=== PATIENT | female | born 1990 | race Caucasian/White ===

== ENCOUNTER 2018-09-08 19:22 | Observation (INO) | payer SELFPAY ==
[~2018-09-08] VITALS: Ht 152.4 cm; Wt 52.2 kg
[~2018-09-08 19:22] MED LIST: IBP600T1 PO; OCP
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
--- NOTE | 2018-09-08 19:30 | NUR ---
PT REPORTS GENRALIZED PAIN ALL OVER, DR. NUNEZ OFFERS PAIN MEDICATION. PT REFUSES AT THIS TIME STATING, "I GET SICK WITH PAIN MEDICATION."
[2018-09-08] MEDS ORDERED: NS IV 1000 ML 1,000 ML IV ONE (19:38)
[2018-09-08 19:48] LABS: BASOPHILS % (AUTO) 0 % (0-10); EOSINOPHILS % (AUTO) 0 % (0-10); HEMATOCRIT 43 % (35-52); LYMPHOCYTES # (AUTO) 1.2 X 10^3 (1.0-4.0); LYMPHOCYTES % (AUTO) 6 % (12-44); MEAN CORPUSCULAR HEMOGLOBIN 30 PG (25-34); MEAN CORPUSCULAR HGB CONC 35 G/DL (32-36); MEAN CORPUSCULAR VOLUME 87 FL (80-99); MEAN PLATELET VOLUME 9.4 FL (7.4-10.4); MONOCYTES # (AUTO) 1.5 X 10^3 (0.0-1.0); MONOCYTES % (AUTO) 8 % (0-12); NEUTROPHILS # (AUTO) 16.4 X 10^3 (1.8-7.8); NEUTROPHILS % (AUTO) 86 % (42-75); PLATELET COUNT 311 10^3/uL (130-400); RED CELL DISTRIBUTION WIDTH 13.4 % (10.0-14.5); WHITE BLOOD COUNT 19.1 10^3/uL (4.3-11.0)
[2018-09-08 20:08] LABS: ALANINE AMINOTRANSFERASE 30 U/L (0-55); ALBUMIN 4.4 GM/DL (3.2-4.5); ALKALINE PHOSPHATASE 63 U/L (40-136); BILIRUBIN,TOTAL 0.6 MG/DL (0.1-1.0); BUN/CREATININE RATIO 8; CALCIUM 9.1 MG/DL (8.5-10.1); CARBON DIOXIDE 15 MMOL/L (21-32); CHLORIDE 112 MMOL/L (98-107); CREATINE KINASE 429 U/L (29-168); CREATININE SERUM 0.83 MG/DL (0.60-1.30); GFR ESTIMATED > 60; GLUCOSE 124 MG/DL (70-105); POTASSIUM 3.9 MMOL/L (3.6-5.0); SODIUM 144 MMOL/L (135-145); TOTAL PROTEIN 7.4 GM/DL (6.4-8.2)
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
[2018-09-08] MEDS ORDERED: ONDANSETRON 4 MG/2 ML (SDV) Z0FRAN ONE (20:13)
[2018-09-08] MEDS ORDERED: IOHEXOL 350 MG/ML 100 ML (OMNIPAQUE 350) VIAL IV ONE (20:15)
[2018-09-08] MEDS ORDERED: HOLD METFORMIN - RECEIVED CONTRAST 20 ML VIAL IV SCH (20:15)
--- NOTE | 2018-09-08 20:20 | NUR ---
PT REPORTS BRITO AT THIS TIME WHILE ON RADIOLOGY TABLE AND REQUEST PAIN MEDICATION. DR. PADRON CONTACTED FOR ORDER.
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
[2018-09-08] MEDS ORDERED: fentaNYL INJECTION 100 MCG/2 ML AMP IVP ONE ×2 (20:30→21:30)
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
[2018-09-08 20:37] LABS: BAND NEUTROPHILS 3 %; BASOPHILS % (MANUAL) 0 %; EOSINOPHILS % (MANUAL) 0 %; LYMPHOCYTES % (MANUAL) 4 %; MONOCYTES % (MANUAL) 3 %; NEUTROPHILS % (MANUAL) 90 %; RBC MORPH NORMAL
--- NOTE | 2018-09-08 20:38 | NUR ---
PT REPORTS PAIN HAS IMPROVED AT THIS TIME.
--- NOTE | 2018-09-08 20:53 | Diagnostic Imaging Report ---
INDICATION: Bilateral forearm pain. COMPARISON: None available. TECHNIQUE: AP and lateral views of each forearm were obtained. FINDINGS AND IMPRESSION: 1. No acute fracture within the right or left forearm. 2. No radiopaque foreign bodies. Dictated by: Dictated on workstation # [id number]
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
--- NOTE | 2018-09-08 21:10 | NUR ---
pt assisted to bedside commode at this time.
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
--- NOTE | 2018-09-08 21:22 | NUR ---
poison control called at this time. suggests applying goup or mineral oil to skin where adhesive is still.
[2018-09-08 21:25] LABS: BILIRUBIN,URINE NEGATIVE (NEGATIVE); CLARITY,URINE SLIGHTLY CLOUDY; COLOR,URINE YELLOW; GLUCOSE, URINE (UA) NEGATIVE (NEGATIVE); KETONES,URINE 1+ (NEGATIVE); LEUKOCYTE ESTERASE ,URINE 1+ (NEGATIVE); NITRITE,URINE NEGATIVE (NEGATIVE); PH,URINE 6 (5-9); PROTEIN,URINE 4+ (NEGATIVE); UROBILINOGEN,URINE 4 MG/DL (NORMAL)
[2018-09-08 21:36] LABS: BACTERIA,URINE FEW /HPF; SQUAMOUS EPITHELIAL CELL,UR 25-50 /HPF
[2018-09-08 21:38] LABS: AMPHETAMINE SCREEN, URINE NEGATIVE (NEGATIVE); BARBITURATE SCREEN URINE NEGATIVE (NEGATIVE); BENZODIAZEPINES SCREEN URINE POSITIVE (NEGATIVE); CANNABINOID SCREEN, URINE POSITIVE (NEGATIVE); COCAINE SCREEN URINE NEGATIVE (NEGATIVE); METHADONE STAT NEGATIVE (NEGATIVE); METHAMPHETAMINE SCREEN URINE S NEGATIVE (NEGATIVE); OPIATE SCREEN URINE NEGATIVE (NEGATIVE); OXYCODONE STAT NEGATIVE (NEGATIVE); PROPOXYPHENE STAT NEGATIVE (NEGATIVE); TRICYCLIC ANTIDEPRESSANTS SCRE NEGATIVE (NEGATIVE)
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
[2018-09-08] MEDS ORDERED: PROMETHAZINE INJ 25 MG/ML (PHENERGAN) AMP IVP ONE (21:45)
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
[2018-09-08] MEDS ORDERED: MINERAL OIL CONCENTRATE 99.9% 15 ML UDC ONE (21:56)
--- NOTE | 2018-09-08 22:16 | NUR ---
MINERAL OIL APPLIED TO PT SKIN WHERE SPRAY ADHESIVE IS PRESENT, PER DR. NO ORDERS. STATES, "LEAVE ON TO SOAK INTO ADHESIVE AND HAVE ICU ATTEMPT TO REMOVE ONCE PT IS UPSTAIRS."
--- NOTE | 2018-09-08 22:24 | NUR ---
PT TRANSFERED TO ICU AT [facility] TIME [facility] PT C-COLLAR REMAINS INTACT PER DR. NO ORDERS.
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
[2018-09-08 22:39] VITALS: BP 118/68
[2018-09-08] MEDS ORDERED: NS IV 1000 ML 1,000 ML ONE (22:43)
--- NOTE | 2018-09-08 22:50 | NUR ---
[place] [employer] OFFICER PRAKASH HERE FOR PT CLOTHING. OFFICER DIRECTED TO ICU FOR COLLECTION OF PT CLOTHING AT THIS TIME.
[2018-09-08 23:00] VITALS: BP 117/66
[2018-09-08] MEDS ORDERED: ONDANSETRON 4 MG/2 ML (SDV) Z0FRAN IV PRN (23:45)
[2018-09-08] MEDS: NS IV 1000 ML 1,000 ML IV SCH (23:45)
[2018-09-08] MEDS ORDERED: HYDROcodone/APAP 5 MG/325 MG (LORTAB) TAB PO PRN (23:45)
[2018-09-09] VITALS: BP 103/52
--- NOTE | 2018-09-09 00:15 | NUR ---
[place] [employer] OFFICER HERE TO TAKE PTS CLOTHING
[2018-09-09] MEDS: morphine INJ 4 MG/ML 1 ML (VIAL/SYRINGE) IV PRN ×4 (00:22→11:58)
[2018-09-09 01:00] VITALS: BP 95/51
[2018-09-09 01:41] VITALS: BP 118/68
[2018-09-09 03:49] LABS: BASOPHILS % (AUTO) 0 % (0-10); EOSINOPHILS % (AUTO) 0 % (0-10); HEMATOCRIT 34 % (35-52); HEMOGLOBIN 11.5 G/DL (11.5-16.0); LYMPHOCYTES # (AUTO) 3.1 X 10^3 (1.0-4.0); LYMPHOCYTES % (AUTO) 33 % (12-44); MEAN CORPUSCULAR HEMOGLOBIN 30 PG (25-34); MEAN CORPUSCULAR HGB CONC 34 G/DL (32-36); MEAN CORPUSCULAR VOLUME 88 FL (80-99); MEAN PLATELET VOLUME 9.3 FL (7.4-10.4); MONOCYTES % (AUTO) 11 % (0-12); NEUTROPHILS # (AUTO) 5.3 X 10^3 (1.8-7.8); NEUTROPHILS % (AUTO) 56 % (42-75); PLATELET COUNT 214 10^3/uL (130-400); RED CELL DISTRIBUTION WIDTH 13.2 % (10.0-14.5); WHITE BLOOD COUNT 9.4 10^3/uL (4.3-11.0)
[2018-09-09 04:00] VITALS: BP 106/65
[2018-09-09 04:13] LABS: ALANINE AMINOTRANSFERASE 23 U/L (0-55); ALBUMIN 3.5 GM/DL (3.2-4.5); ALKALINE PHOSPHATASE 50 U/L (40-136); BILIRUBIN,TOTAL 1.5 MG/DL (0.1-1.0); BUN/CREATININE RATIO 10; CALCIUM 7.9 MG/DL (8.5-10.1); CARBON DIOXIDE 19 MMOL/L (21-32); CHLORIDE 109 MMOL/L (98-107); CREATINE KINASE 413 U/L (29-168); CREATININE SERUM 0.61 MG/DL (0.60-1.30); GFR ESTIMATED > 60; GLUCOSE 91 MG/DL (70-105); POTASSIUM 4.2 MMOL/L (3.6-5.0); SODIUM 139 MMOL/L (135-145); TOTAL PROTEIN 5.5 GM/DL (6.4-8.2)
--- NOTE | 2018-09-09 05:08 | NUR ---
DR NOGUERA HERE AND REMOVED NECK BRACE
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
[2018-09-09] MEDS: NS IV 1000 ML 1,000 ML IV SCH (07:37)
[2018-09-09 08:00] VITALS: BP 97/62
--- NOTE | 2018-09-09 08:57 | NUR ---
Pt resting with eyes closed, visitor present in the room resting with eyes next to her bed. Addendum: 09/09/18 at 0905 by GEORGE DRAPER PAST Pt resting with eyes closed, visitor present in the room resting with eyes closed, next to her bed in chair.
[2018-09-09] MEDS ORDERED: ACHD5005 PO (11:19)
--- NOTE | 2018-09-09 11:25 | Discharge Inst-Simple/Standard ---
Discharge Inst-Standard Discharge Medications New, Converted or Re-Newed RX: RX on Chart Patient Instructions/Follow Up Plan of Care/Instructions/FU: Dr. rAora 5-[address] Walton 2 weeks. Keep triple antibiotic ointment on any open wounds. Activity as Tolerated: Yes Discharge Diet: Regular Diet Other Inst to Patient Skin/Wound Care: Keep wounds clean and dry. Keep triple antibiotic over any open wounds. Symptoms to Report: Appetite Changes, Extremity Discoloration, Numbness/Tingling, Swelling Increased , Bleeding Excessive, Eyesight Changes, Pain Increased, Urine Color Change, Constipation(Persistent), Fever over 101 degree F, Pain/Pressure in chest, Urinating Difficulty, Cough Up/Vomit Blood, Heart Beat Irreg/Pounding, Pain/ Pressure in jaw, Vaginal Bleeding Increase, Cramps in feet or legs, Lightheadedness, Pain/Pressure in shoulder, Diarrhea(Persistent), Memory Changes Suddenly, Questions/Concerns, Weight gain consecutive days, Dizziness/ Fainting, Nausea/Vomiting, Shortness of Breath, Weight gain over 2 pounds If questions or concerns contact your physician Or seek help at emergency department. ANGELA WALTON DO Sep 09, 2018 11:25
--- NOTE | 2018-09-09 11:30 | NUR ---
THIS RN CONTACTED DR HEBERT OFFICER PER DR SO REQUEST FOR PT TO HAVE IMMEDIATE OFFICE VISIT OR IN HOSPITAL CONSULT. DR HEBERT OFFICE STATED THAT PT COULD BE SEEN TODAY LUANN. THIS RN NOTIFIED DR SO AND DISCHARGE PROCESS STARTED.
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
[2018-09-09] MEDS ORDERED: MINERAL OIL CONCENTRATE 99.9% 15 ML UDC ONE (11:48)
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
[2018-09-09] MEDS ORDERED: FLU QUADRIvalent (5+ YOA) 2018-2019 (AFLURIA) 0.5 ML IM ONE (12:45)
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
== END 2018-09-09 11:20 | disposition home or self-care (01) ==
LOC: EDUNIT# 19:22 → ER 19:23 → UNDOADMOB 21:34 → ICU 21:34 → UNDODISOB 09-09 12:15
PROVIDERS: ADMIT Surgery; ATTEND Surgery
DX: S06.0X9A Concussion with loss of consciousness of unspecified duration, initial encounter (principal); S02.401A Maxillary fracture, unspecified side, initial encounter for closed fracture; S61.511A Laceration without foreign body of right wrist, initial encounter; S71.111A Laceration without foreign body, right thigh, initial encounter; H53.8 Other visual disturbances; F10.129 Alcohol abuse with intoxication, unspecified; F12.90 Cannabis use, unspecified, uncomplicated; F17.210 Nicotine dependence, cigarettes, uncomplicated; Z77.098 Contact with and (suspected) exposure to other hazardous, chiefly nonmedicinal, chemicals; Y04.8XXA Assault by other bodily force, initial encounter; Y08.89XA Assault by other specified means, initial encounter
CPT/HCPCS: 36415; 70450; 70486; 71045; 71260; 72125; 74177; 80053; 80306; 80320; 81000; 82550; 84703; 85007; 85025; 85027; 86850; 86900; 86901; 87088; 93041; 96374; 96375; 96376

== ENCOUNTER 2018-12-22 11:01 | Emergency (ER) | payer SELFPAY ==
[~2018-12-22 11:01] MED LIST changes: +ACHD5005 PO
--- OUTSIDE RECORDS SUMMARY | 2018-12-22 11:06 | XMS REPORT | Continuity of Care Document ---
Author Author [facility] Organization [facility] Address [address] [place] [address] Phone Unavailable Care Team Providers Care Housing Officer Name Role Phone Provider, No Primary Care PCP Unavailable Insurance Providers Payer Name Policy Number Subscriber Name Relationship [facility] [id number] Skinny Dickerson Self / Same As Patient Advance Directives Directive Response Recorded Date/Time Do You Have A Living Will? No 11/18/16 12:41am Do You Have a DPOA? No 11/18/16 12:41am Problems Active Problems Medical Problem Onset Date Status Peptic ulcer disease Unknown Acute Hematemesis Unknown Acute Ruptured ovarian cyst Unknown Acute Medications Current Home Medications Medication Dose Units Route Directions Days/Qty Instructions Start Date Prochlorperazine Maleate 10 Mg 10 Mg Oral Every 6 Hours As Needed as needed 30 NEEDED FOR NAUSEA 08/06/16 Omeprazole (Prilosec Otc) 20 Mg 40 Mg Oral Twice A Day 60 40MG=TWO TABLETS 08/06/16 Hydrocodone Bit/Acetaminophen 5 Mg-325 Mg 1 Tab Oral Every 4-6 Hours As Needed as needed for Pain 15 11/18/16 Ibuprofen 800 Mg 800 Mg Oral Three Times Daily As Needed 30 11/18/16 Social History Social History Problem Response Recorded Date/Time History of Street Drugs? No 11/18/2016 12:43am Hx Alcohol Use Y she drinks about 3 whiskeys once a week. 11/18/2016 12:43am Query Response Start Date Stop Date Smoking status: Current everyday smoker Hospital Discharge Instructions No hospital discharge instructions. Plan of Care Discharge Date 11/18/16 3:14am Disposition HOME, ROUTINE DIS/ASST LIVING Condition at Discharge Stable & Improved Prescriptions See Medication Section Functional Status No functional status results. Allergies, Adverse Reactions, Alerts No known allergies. Immunizations No immunization records. Vital Signs Acute Vital Signs Vital Response Date/Time Height (Feet) 5 ft 11/18/2016 12:43am Height (Inches) 0.00 inches 11/18/2016 12:43am Temperature (Fahrenheit) 98.3 degrees F (97.6 - 99.5) 11/18/2016 12:43am Pulse Pulse Rate 106 bpm (60 - 100) 11/18/2016 12:43am Respiratory Rate 18 bpm (10 - 24) 11/18/2016 12:43am Oxygen Saturation O2 Sat by Pulse Oximetry 98 % (93 - 100) 11/18/2016 12:43am Blood Pressure 134/93 mm Hg 11/18/2016 12:43am Blood Pressure Mean 107 mm Hg 11/18/2016 12:43am Height 5 ft 0 in Weight 124 lb Body Mass Index 24.0 kg/m^2 Results Laboratory Results Test Name Result Units Flags Reference Collection Date/Time Result Date/Time Comments White Blood Count 9.1 1000/cmm 3.8-10.8 08/06/2016 9:14pm 08/06/2016 9:26pm Red Blood Count 4.82 MIL/uL 3.80-5.10 08/06/2016 9:1408/06/2016 9:26pm Hemoglobin 15.2 g/dL 11.7-15.5 08/06/2016 9:08/06/2016 9:26pm Hematocrit 43.3 % 35.0-45.0 08/06/2016 9:08/06/2016 9:26pm Mean Corpuscular Volume 90 fL 80-100 08/06/2016 9:1408/06/2016 9:26pm Mean Corpuscular Hemoglobin 32 pg 27-33 08/06/2016 9:08/06/2016 9:26pm Mean Corpuscular Hemoglobin Concent 35 g/dL 32-36 08/06/2016 9:1408/06/2016 9:26pm Red Cell Distribution Width 12.4 % 11.0-15.0 08/06/2016 9:08/06/2016 9:26pm Platelet Count 282 1000/cmm 140-400 08/06/2016 9:08/06/2016 9:26pm Mean Platelet Volume 9.6 fL 8.7-11.9 08/06/2016 9:08/06/2016 9:26pm Granulocytes (%) 59.1 % 08/06/2016 9:08/06/2016 9:26pm Lymphocytes % 29.1 % 08/06/2016 9:08/06/2016 9:26pm Monocytes % 8.9 % 08/06/2016 9:08/06/2016 9:26pm Eosinophils % 2.5 % 08/06/2016 9:08/06/2016 9:26pm Basophils % 0.4 % 08/06/2016 9:08/06/2016 9:26pm Granulocytes # 5.39 1000/uL 1.50-7.80 08/06/2016 9:08/06/2016 9:26pm Lymphocytes # 2.65 1000/uL 0.85-3.90 08/06/2016 9:08/06/2016 9:26pm Monocytes # 0.81 1000/uL 0.20-0.95 08/06/2016 9:08/06/2016 9:26pm Eosinophils # 0.23 1000/uL 0.01-0.50 08/06/2016 9:08/06/2016 9:26pm Basophils # 0.04 1000/uL 0.00-0.20 08/06/2016 9:08/06/2016 9:26pm Urine Color YELLOW YELLOW 08/06/2016 9:08/06/2016 9:32pm Urine Appearance CLEAR CLEAR 08/06/2016 9:08/06/2016 9:32pm Urine Specific [place] 1.010 08/06/2016 9:08/06/2016 9:32pm Reference Range <=1.005-1.035 Urine pH 7.0 5.0-8.0 08/06/2016 9:08/06/2016 9:32pm Urine Protein NEGATIVE mg/dL NEGATIVE 08/06/2016 9:08/06/2016 9:32pm Urine Glucose NEGATIVE mg/dL NEGATIVE 08/06/2016 9:08/06/2016 9:32pm Urine Ketones NEGATIVE mg/dL NEGATIVE 08/06/2016 9:08/06/2016 9:32pm Urine Blood NEGATIVE NEGATIVE 08/06/2016 9:08/06/2016 9:32pm Urine Nitrite NEGATIVE NEGATIVE 08/06/2016 9:08/06/2016 9:32pm Urine Leukocyte Esterase NEGATIVE NEGATIVE 08/06/2016 9:08/06/2016 9:32pm Urine Bilirubin NEGATIVE NEGATIVE 08/06/2016 9:08/06/2016 9:32pm Urine Urobilinogen 1.0 mg/dL 0.2-1.0 08/06/2016 9:08/06/2016 9:32pm N/A No NO 08/06/2016 9:08/06/2016 9:32pm Sodium Level 142 mmol/L 135-146 08/06/2016 9:08/06/2016 9:37pm Potassium Level 4.5 mmol/L 3.5-5.0 08/06/2016 9:08/06/2016 9:37pm Hemolysis detected, results may be affected. Chloride Level 104 mmol/L 98-110 08/06/2016 9:08/06/2016 9:37pm Carbon Dioxide Level 22.9 mmol/L 19.0-30.0 08/06/2016 9:08/06/2016 9:37pm Anion Gap 15 7-17 08/06/2016 9:1408/06/2016 9:37pm Glucose Level 107 mg/dL H 65-99 08/06/2016 9:08/06/2016 9:37pm Blood Urea Nitrogen 8 mg/dL 7-25 08/06/2016 9:08/06/2016 9:37pm Creatinine 0.53 mg/dL 0.50-1.10 08/06/2016 9:1408/06/2016 9:37pm Estimated GFR (Non- 132 >60 08/06/2016 9:08/06/2016 9:37pm Units: mL/min/1.73m2) Estimated GFR () 153 >60 08/06/2016 9:08/06/2016 9:37pm Units: mL/min/1.73m2) BUN/Creatinine Ratio 15 7-25 08/06/2016 9:14pm 08/06/2016 9:37pm Estimated GFR (Cockcroft-Gault) 130.35 ml/min >30 08/06/2016 9:1408/06/2016 9:37pm Adjusted body weight used for calculation. Calculated Osmolality 293 mOSM/kg 280-300 08/06/2016 9:1408/06/2016 9:37pm Total Protein 7.8 g/dL 6.1-8.1 08/06/2016 9:14pm 08/06/2016 9:37pm Albumin 4.5 g/dL 3.6-5.1 08/06/2016 9:14pm 08/06/2016 9:37pm Globulin 3.3 g/dL 1.9-3.7 08/06/2016 9:14pm 08/06/2016 9:37pm Calcium Level 9.5 mg/dL 8.6-10.2 08/06/2016 9:1408/06/2016 9:37pm Corrected Calcium 9.4 mg/dL 8.6-10.2-calc 08/06/2016 9:14pm 08/06/2016 9:37pm Total Bilirubin 0.3 mg/dL 0.2-1.2 08/06/2016 9:14pm 08/06/2016 9:37pm Lipase 36 IU/L 7-60 08/06/2016 9:14pm 08/06/2016 9:37pm Alkaline Phosphatase 56 U/L 33-115 08/06/2016 9:08/06/2016 9:37pm Aspartate Amino Transf (AST/SGOT) 26 U/L 10-30 08/06/2016 9:14pm 08/06/2016 9:37pm Hemolysis detected, results may be affected. Alanine Aminotransferase (ALT/SGPT) 18 U/L 6-29 08/06/2016 9:14pm 08/06/2016 9:37pm AST/ALT Ratio 1.444 0.10-40.00 08/06/2016 9:14pm 08/06/2016 9:37pm Bedside Urine HCG, Qualitative Negative NEGATIVE 08/06/2016 10:00pm 08/06/2016 10:02pm Bedside Urine Test QC acceptable ACCEPTABLE 08/06/2016 10:00pm 08/06/2016 10:02pm [id number] TESTING PERFORMED BY PERSONNEL OF: [address] [place] [address] Bedside Urine HCG, Qualitative Negative NEGATIVE 08/10/2016 7:58am 08/10/2016 8:20am Bedside Urine Test QC acceptable ACCEPTABLE 08/10/2016 7:58am 08/10/2016 8:20am [id number] TESTING PERFORMED BY PERSONNEL OF: [address] [place] [address] Urine Color YELLOW YELLOW 11/18/2016 1:21am 11/18/2016 1:32am Urine Appearance CLEAR CLEAR 11/18/2016 1:11/18/2016 1:32am Urine Specific [place] 1.010 11/18/2016 1:11/18/2016 1:32am Reference Range <=1.005-1.035 Urine pH 5.5 5.0-8.0 11/18/2016 1:11/18/2016 1:32am Urine Protein NEGATIVE mg/dL NEGATIVE 11/18/2016 1:11/18/2016 1:32am Urine Glucose NEGATIVE mg/dL NEGATIVE 11/18/2016 1:11/18/2016 1:32am Urine Ketones NEGATIVE mg/dL NEGATIVE 11/18/2016 1:11/18/2016 1:32am Urine Blood NEGATIVE NEGATIVE 11/18/2016 1:11/18/2016 1:32am Urine Nitrite NEGATIVE NEGATIVE 11/18/2016 1:11/18/2016 1:32am Urine Leukocyte Esterase NEGATIVE NEGATIVE 11/18/2016 1:11/18/2016 1:32am Urine Bilirubin NEGATIVE NEGATIVE 11/18/2016 1:11/18/2016 1:32am Urine Urobilinogen 0.2 mg/dL 0.2-1.0 11/18/2016 1:11/18/2016 1:32am Color Interference, Urine No NO 11/18/2016 1:11/18/2016 1:32am Bedside Urine HCG, Qualitative Negative NEGATIVE 11/18/2016 1:1911/18/2016 1:21am Bedside Urine Test QC acceptable ACCEPTABLE 11/18/2016 1:11/18/2016 1:21am [id number] TESTING PERFORMED BY PERSONNEL OF: [place] [address] [place] [address] Vaginal Yeast (Wet Prep) NEGATIVE NEGATIVE 11/18/2016 1:21am 11/18/2016 1:48am Clue Cells (Wet Prep) NEGATIVE NEGATIVE 11/18/2016 1:21am 11/18/2016 1:48am Trichomonas (Wet Prep) NEGATIVE NEGATIVE 11/18/2016 1:21am 11/18/2016 1:48am Procedures Procedure Status Date Provider(s) ROUTINE VENIPUNCTURE Completed 08/06/16 COMPREHEN METABOLIC PANEL Completed 08/06/16 URINALYSIS AUTO W/O SCOPE Completed 08/06/16 URINE TEST Completed 08/06/16 ASSAY OF LIPASE Completed 08/06/16 COMPLETE CBC W/AUTO DIFF WBC Completed 08/06/16 THER/PROPH/DIAG INJ IV PUSH Completed 08/06/16 TX/PRO/DX INJ NEW DRUG ADDON Completed 08/06/16 EMERGENCY DEPT VISIT Completed 08/06/16 Ketorolac tromethamine inj Completed 08/06/16 Ondansetron hcl injection Completed 08/06/16 Prochlorperazine maleate 5mg Completed 08/06/16 EGD BIOPSY SINGLE/MULTIPLE Completed 08/10/16 Nicolas Hernandez MD URINE TEST Completed 08/10/16 PROPOFOL, 10 MG Completed 08/10/16 Ringers lactate infusion Completed 08/10/16 US transvaginal Active 11/18/16 Juan Carr MD Encounters Encounter Location Arrival/Admit Date Discharge/Depart Date Attending Provider Departed Emergency Room [facility] 11/18/16 12:39am 11/18/16 3:14am Juan Carr MD Departed Surgical Day Care [facility] 08/10/16 7:36am 08/10/16 10:30am Nicolas Hernandez MD Departed Emergency Room [facility] 08/06/16 8:52pm 08/06/16 10:42pm Oliver West MD Recent Diagnosis Ruptured ovarian cyst
--- OUTSIDE RECORDS SUMMARY | 2018-12-22 11:06 | XMS REPORT ---
Author Author Azalea Keys [facility] Address [address] [place], [place] [id number] Care Team Providers Care Early Childhood Special Educator Name Role Phone Azalea Keys Unavailable PROBLEMS Type Condition ICD9-CM Code [id number] Code Onset Dates Condition Status SNOMED Code Problem Right ovarian cyst N83.201 Active 54714605327655497 Problem Gastroesophageal reflux disease without esophagitis K21.9 Active 547737610 Problem Antral gastritis K29.50 Active 8066973 Problem Colon spasm K58.9 Active [id number] ALLERGIES Unknown Allergies SOCIAL HISTORY No smoking Hx information available PLAN OF CARE VITAL SIGNS MEDICATIONS Unknown Medications RESULTS No Results PROCEDURES No Known procedures IMMUNIZATIONS No Known Immunizations
--- OUTSIDE RECORDS SUMMARY | 2018-12-22 11:06 | XMS REPORT ---
Author Author Migration, Doctor Organization [facility] Address Unknown Phone Unavailable Care Team Providers Care Printing Roller Polisher Name Role Phone Migration, Doctor Unavailable Unavailable PROBLEMS Type Condition ICD9-CM Code [id number] Code Onset Dates Condition Status SNOMED Code Problem Acute sinusitis, unspecified 461.9 Active 85298619 Problem Allergic rhinitis due to pollen 477.0 Active 76333661 ALLERGIES No Information ENCOUNTERS Encounter Location Date Diagnosis [facility] [address] [facility] [id number] [address] 14 Sep, 2014 [facility] [address] [facility] [id number] [address] 13 Sep, 2014 [facility] [address] [id number] [id number] Feb, IMMUNIZATIONS No Known Immunizations SOCIAL HISTORY Never Assessed REASON FOR VISIT [facility] PLAN OF CARE VITAL SIGNS MEDICATIONS Medication Instructions Dosage Frequency Start Date End Date Duration Status Augmentin 875-125 mg 1 tablet by Oral route 2 times per day for 14 day(s) Feb, Active fluticasone 50 mcg/actuation 2 sprays by Nasal route 1 time per day Feb, Active cetirizine 10 mg 1 tablet by Oral route 1 daily Feb, Active RESULTS No Results PROCEDURES No Known procedures INSTRUCTIONS MEDICATIONS ADMINISTERED No Known Medications
--- OUTSIDE RECORDS SUMMARY | 2018-12-22 11:06 | XMS REPORT | Continuity of Care Document ---
Author Author [facility] Organization [facility] Address [address] [place] [address] Care Team Providers Care Keymodule Assembly Machine Tender Name Role Phone Primary Care Prov, None PCP Unavailable Tera Lebron Tera Lebron Attphys Allergies, Adverse Reactions, Alerts No known allergies. Medications Active Medications Medication Dose Units Route Sig Qty Start Date Status Instructions Ondansetron [Zofran Odt] 4 MG PO Q6H PRN For nausea and vomiting November 13, 2017 Active Hydroxyzine Hcl 50 MG PO every 8 hours as needed PRN For Anxiety December 18, 2017 Active Ondansetron [Zofran Odt] 4 MG PO every 6 hours as needed PRN For Nausea December 18, 2017 Active Metoclopramide Hcl [Reglan] 10 MG PO every 8 hours as needed PRN For Nausea December 18, 2017 Active Discontinued Medications Medication Dose Units Route Sig Qty Start Date Discontinued Date Status Instructions Omeprazole Magnesium [Prilosec Otc] 40 MG PO twice a day 60 August 06, 2016 November 13, 2017 Discontinued 40MG=TWO TABLETS Prochlorperazine Maleate 10 MG PO every 6 hours as needed PRN August 06, 2016 November 13, 2017 Discontinued NEEDED FOR NAUSEA Hydrocodone/Acetaminophen [[place] 5-325 Tablet] 1 TAB PO every 4-6 hours as needed PRN For PAIN November 18, 2016 November 13, 2017 Discontinued Ibuprofen 800 MG PO three times daily as needed November 18, 2016 November 13, 2017 Discontinued Problem List Active Problems Medical Problem Onset Date Status Ruptured ovarian cyst Active Hematemesis Active Peptic ulcer disease Active Inactive/Resolved Problems Medical Problem Onset Date Status Acute anxiety Inactive Procedures No known history of procedures. Relevant Diagnostic Tests and/or Laboratory Data Laboratory Results Test Date/Time Result Interp. Ref. Range Result Comment White Blood Count December 18, 2017 4:24pm 7.2 1000/cmm 3.8-10.8 Red Blood Count December 18, 2017 4:24pm 5.14 MIL/uL High 3.80-5.10 Hemoglobin December 18, 2017 4:24pm 17.3 g/dL High 11.7-15.5 Hematocrit December 18, 2017 4:24pm 47.4 % High 35.0-45.0 Mean Corpuscular Volume December 18, 2017 4:24pm 92 fL 80-100 Mean Corpuscular Hemoglobin December 18, 2017 4:24pm 34 pg High 27-33 Mean Corpuscular Hemoglobin Concent December 18, 2017 4:24pm 37 g/dL High 32-36 Red Cell Distribution Width December 18, 2017 4:24pm 12.0 % 11.0-15.0 Platelet Count December 18, 2017 4:24pm 201 1000/cmm 140-400 Mean Platelet Volume December 18, 2017 4:24pm 10.0 fL 7.5-12.5 Granulocytes (%) December 18, 2017 4:24pm 67.2 % Lymphocytes (%) (Auto) December 18, 2017 4:24pm 16.8 % Monocytes (%) (Auto) December 18, 2017 4:24pm 15.1 % Eosinophils (%) (Auto) December 18, 2017 4:24pm 0.6 % Basophils (%) (Auto) December 18, 2017 4:24pm 0.3 % Granulocytes # (Auto) December 18, 2017 4:24pm 4.82 1000/uL 1.50-7.80 Lymphocytes # (Auto) December 18, 2017 4:24pm 1.20 1000/uL 0.85-3.90 Monocytes # (Auto) December 18, 2017 4:24pm 1.08 1000/uL High 0.20-0.95 Eosinophils # (Auto) December 18, 2017 4:24pm 0.04 1000/uL 0.01-0.50 Basophils # (Auto) December 18, 2017 4:24pm 0.02 1000/uL 0.00-0.20 Sodium Level December 18, 2017 4:24pm 133 mmol/L Low 135-146 Potassium Level December 18, 2017 4:24pm 3.1 mmol/L Low 3.5-5.3 Chloride Level December 18, 2017 4:24pm 91 mmol/L Low 98-110 Carbon Dioxide Level December 18, 2017 4:24pm 22.8 mmol/L 20-31 Anion Gap December 18, 2017 4:24pm 19 High 7-17 Glucose Level December 18, 2017 4:24pm 101 mg/dL High 65-99 Blood Urea Nitrogen December 18, 2017 4:24pm 7 mg/dL 7-25 Creatinine December 18, 2017 4:24pm 0.58 mg/dL 0.50-1.10 Estimated GFR (Non- December 18, 2017 4:24pm 127 61- Units: mL/min/1.73m2) Estimated GFR () December 18, 2017 4:24pm 147 61- Units: mL/min/1.73m2) Estimated GFR (Cockcroft-Gault) December 18, 2017 4:24pm 119.00 ml/min 30- Actual body weight used for calculation. Calculated Osmolality December 18, 2017 4:24pm 274 mOSM/kg Low 280-300 BUN/Creatinine Ratio December 18, 2017 4:24pm 12 7-25 Calcium Level December 18, 2017 4:24pm 10.5 mg/dL High 8.6-10.2 Total Protein December 18, 2017 4:24pm 8.2 g/dL High 6.1-8.1 Albumin December 18, 2017 4:24pm 5.0 g/dL 3.6-5.1 Globulin December 18, 2017 4:24pm 3.2 g/dL 1.9-3.7 Corrected Calcium December 18, 2017 4:24pm 10.1 mg/dL 8.6-10.2 Total Bilirubin December 18, 2017 4:24pm 1.7 mg/dL High 0.2-1.2 Alkaline Phosphatase December 18, 2017 4:24pm 70 U/L 33-115 Aspartate Amino Transf (AST/SGOT) December 18, 2017 4:24pm 41 U/L High 10-30 Alanine Aminotransferase (ALT/SGPT) December 18, 2017 4:24pm 28 U/L 6-29 AST/ALT Ratio December 18, 2017 4:24pm 1.464 0.10-40.00 Free Thyroxine December 18, 2017 4:24pm 2.12 ng/dL High 0.80-1.80 Thyroid Stimulating Hormone (TSH) December 18, 2017 4:24pm 0.84 uIU/mL 0.40-4.50 Chief Complaint and Reason for Visit Encounter Admit Date Chief Complaint Reason for Visit Registered Inpatient December 18, 2017 2:58pm SOB, rapid heart, blackout Hospital Discharge Instructions Additional Discharge Instructions Try to control your breathing while feeling your pulse to attempt to control your anxiety through biofeedback. Also try the prescribed anxiety medication. Use nausea medication as needed. Only fill the Reglan medication as a second line medication for nausea. Follow-up with your doctor for repeat examination within 1 week, either as a primary physician visit or through [facility]. Return to the emergency department immediately for any concerns, including uncontrolled vomiting, worsening condition, suicidal thoughts or plan. No Instructions/Education Provided Hospital Discharge Medications Medication Dose Units Route Sig Qty Days Order Date Status Instructions Ondansetron 4 MG PO Q6H PRN For nausea and vomiting November 13, 2017 Active Omeprazole Magnesium 40 MG PO twice a day August 06, 2016 Discontinued 40MG=TWO TABLETS Prochlorperazine Maleate 10 MG PO every 6 hours as needed PRN August 06, 2016 Discontinued NEEDED FOR NAUSEA Hydrocodone/Acetaminophen 1 TAB PO every 4-6 hours as needed PRN For PAIN November 18, 2016 Discontinued Ibuprofen 800 MG PO three times daily as needed November 18, 2016 Discontinued Hydroxyzine Hcl 50 MG PO every 8 hours as needed PRN For Anxiety December 18, 2017 Active Ondansetron 4 MG PO every 6 hours as needed PRN For Nausea December 18, 2017 Active Metoclopramide Hcl 10 MG PO every 8 hours as needed PRN For Nausea December 18, 2017 Active Encounters Encounter Facility Location Admit/Visit Date Discharge/Departure Date Attending Provider Registered Inpatient [facility] December 18, 2017 11:59pm River Lassiter Registered Inpatient [facility] Emergency Professional December 18, 2017 2:58pm Tera Lebron Departisreal Physician/Provider Office Visit [facility] November 13, 2017 11:15am November 13, 2017 12:36pm Poornima Haynes Functional Status No known functional status. Immunizations No known immunizations. Payers Payer Name Policy Type Covered Libertarian Covered Libertarian Id Relationship Subscriber Subscriber Id Self Pay Other Plan of Care No Known Plan of Care Information Social History Query Response Start Date Stop Date Smoking Status Never smoker Vital Signs Vital Reading Result Reference Range Collection Date/Time Height 5 ft December 18, 2017 3:02pm Weight 113 lb 12.136 oz December 18, 2017 3:02pm Temperature 98.0 F 97.6 F-99.6 F December 18, 2017 3:13pm Pulse 71 BPM 60-90 December 18, 2017 3:13pm Respiration 32 RPM 12-December 18, 2017 3:13pm Pulse Oximetry 99 % 93-100 December 18, 2017 3:13pm Blood Pressure Systolic 131 100-180 December 18, 2017 3:13pm Blood Pressure Diastolic 96 60-90 December 18, 2017 3:13pm Body Mass Index 22.1 December 18, 2017 3:02pm
--- OUTSIDE RECORDS SUMMARY | 2018-12-22 11:06 | XMS REPORT ---
Author Author Migration, Doctor Organization [facility] Address Unknown Phone Unavailable Care Team Providers Care Driving Instructor Name Role Phone Migration, Doctor Unavailable Unavailable PROBLEMS Type Condition ICD9-CM Code NTI34-VI Code Onset Dates Condition Status SNOMED Code Problem Acute sinusitis, unspecified 461.9 Active 82459578 Problem Allergic rhinitis due to pollen 477.0 Active 09663995 ALLERGIES No Information ENCOUNTERS Encounter Location Date Diagnosis [facility] [id number] [address] 14 Sep, 2014 [facility] [address] [facility] [id number] [address] 13 Sep, 2014 [facility] [address] [id number] [id number] 10 Feb, 2013 IMMUNIZATIONS No Known Immunizations SOCIAL HISTORY Never Assessed REASON FOR VISIT [facility] PLAN OF CARE VITAL SIGNS MEDICATIONS Unknown Medications RESULTS No Results PROCEDURES No Known procedures INSTRUCTIONS MEDICATIONS ADMINISTERED No Known Medications
--- OUTSIDE RECORDS SUMMARY | 2018-12-22 11:07 | XMS REPORT ---
Author Author Azalea Keys [facility] Address [address] [place], [place] [address] Care Team Providers Care Manager Distribution Name Role Phone Azalea Keys Unavailable PROBLEMS Type Condition ICD9-CM Code [id number] Code Onset Dates Condition Status SNOMED Code Problem Antral gastritis K29.50 Active 1223554 Problem Colon spasm K58.9 Active 652048286 ALLERGIES Unknown Allergies SOCIAL HISTORY No smoking Hx information available PLAN OF CARE VITAL SIGNS MEDICATIONS Medication Instructions Dosage Frequency Start Date End Date Duration Status Ortho Tri-Cyclen (28) 0.18/0.215/0.25 MG-35 MCG Orally Once a day 1 tablet 24h Sep, 28 day(s) Active RESULTS No Results PROCEDURES No Known procedures IMMUNIZATIONS No Known Immunizations
--- OUTSIDE RECORDS SUMMARY | 2018-12-22 11:07 | XMS REPORT | Continuity of Care Document ---
Author Author [facility] Organization [facility] Address [address] [place] [address] Care Team Providers Care Switchboard Operator Supervisor Name Role Phone Primary Care Prov, None PCP Unavailable Tera Lebron Allergies, Adverse Reactions, Alerts No known allergies. [...] 13, 2017 Discontinued NEEDED FOR NAUSEA Hydrocodone/Acetaminophen [[place] 5-325 Tablet] 1 TAB PO every 4-6 hours as needed PRN For PAIN November 18, 2016 November 13, 2017 Discontinued Ibuprofen 800 MG PO three times daily as needed November 18, 2016 November 13, 2017 Discontinued Problem List Active Problems Medical Problem Onset Date Status Acute anxiety Active Ruptured ovarian cyst Active Hematemesis Active Peptic ulcer disease Active Procedures No known history of procedures. Relevant [...] Admit Date Chief Complaint Reason for Visit Departed Emergency December 18, 2017 2:58pm SOB, rapid heart, [...] as a primary physician visit or through [facility]. Return to the emergency department immediately for any concerns, including uncontrolled vomiting, worsening condition, suicidal thoughts or plan. No Instructions/Education Provided Hospital Discharge Medications Medication Dose Units Route Sig Qty Days Order Date Status Instructions Ondansetron 4 MG PO Q6H PRN For nausea and vomiting November 13, 2017 Active Omeprazole Magnesium 40 MG PO twice a day 60 August 06, 2016 Discontinued 40MG=TWO TABLETS Prochlorperazine [...] 6 hours as needed PRN For Nausea 8 December 18, 2017 Active Metoclopramide Hcl 10 MG PO every 8 hours as needed PRN For Nausea December 18, 2017 Active Encounters Encounter Facility Location Admit/Visit Date Discharge/Departure Date Attending Provider Departed Emergency [facility] December 18, 2017 2:58pm December 18, 2017 5:45pm Departed Physician/Provider Office Visit [facility] November 13, 2017 11:15am November 13, 2017 12:36pm Poornima Haynes Functional Status No known functional status. Immunizations No known immunizations. Payers Payer Name Policy Type Covered Constitution Party Covered Constitution Party Id Relationship Subscriber Subscriber Id Self Pay [...]
--- OUTSIDE RECORDS SUMMARY | 2018-12-22 11:07 | XMS REPORT ---
Author Author Azalea Keys [facility] Address [address] [place], [place] [address] Care Team Providers Care Industrial Real Estate Agent Name Role Phone Azalea Keys Unavailable PROBLEMS Type Condition ICD9-CM Code [id number] Code Onset Dates Condition Status SNOMED Code Problem Antral gastritis K29.50 Active 6242233 Problem Colon spasm K58.9 Active 198869748 ALLERGIES Unknown Allergies SOCIAL HISTORY No smoking Hx information available PLAN OF CARE VITAL SIGNS MEDICATIONS Unknown Medications RESULTS No Results PROCEDURES No Known procedures IMMUNIZATIONS No Known Immunizations
--- OUTSIDE RECORDS SUMMARY | 2018-12-22 11:07 | XMS REPORT | Continuity of Care Document ---
Author Author [facility] Organization [facility] Address [address] [place] [address] Phone Unavailable Care Team Providers Care Multi Disciplined Language Analyst Name Role Phone Provider, No Primary Care PCP Unavailable Insurance Providers Payer Name Policy Number Subscriber Name Relationship [facility] [id number] Kathleen Dickerson Self / Same As Patient Advance Directives Directive Response Recorded Date/Time Do You Have A Living Will? No 08/10/16 7:36am Do You Have a DPOA? No 08/10/16 7:36am Problems Active Problems Medical Problem Onset Date Status Peptic ulcer disease Unknown Acute Hematemesis Unknown Acute Medications Current Home Medications Medication Dose Units Route Directions Days/Qty Instructions Start Date Prochlorperazine Maleate 10 Mg 10 Mg Oral Every 6 Hours As Needed as needed 30 NEEDED FOR NAUSEA 08/06/16 Omeprazole (Prilosec Otc) 20 Mg 40 Mg Oral Twice A Day 60 40MG=TWO TABLETS 08/06/16 Social History Social History Problem Response Recorded Date/Time History of Street Drugs? No 08/10/2016 8:00am Hx Alcohol Use Y she drinks about 3 whiskeys once a week. 08/10/2016 8:00am Query Response Start Date Stop Date Smoking status: Current everyday smoker Hospital Discharge Instructions Instructions Discharge Discharge/Dismiss patient: Dismiss/release patient order: Home Plan of Care Discharge Date 08/10/16 10:30am Instructions/Education Provided EGD - [facility] CORE MEASURES FOR D/C - [facility] Prescriptions See Medication Section Functional Status No functional status results. Allergies, Adverse Reactions, Alerts No known allergies. Immunizations No immunization records. Vital Signs Acute Vital Signs Vital Response Date/Time Temperature (Fahrenheit) 97.5 degrees F (97.6 - 99.5) 08/10/2016 9:24am Pulse Pulse Rate 81 bpm (60 - 100) 08/10/2016 10:10am Respiratory Rate 16 bpm (10 - 24) 08/10/2016 10:10am Oxygen Saturation O2 Sat by Pulse Oximetry 99 % (93 - 100) 08/10/2016 10:10am Blood Pressure 116/71 mm Hg 08/10/2016 10:10am Blood Pressure Mean 86 mm Hg 08/10/2016 10:10am Height 5 ft 0 in Weight 132 lb Body Mass Index 25.0 kg/m^2 Results Laboratory Results Test Name Result Units Flags Reference Collection Date/Time Result Date/Time Comments White Blood Count 9.1 1000/cmm 3.8-10.8 08/06/2016 9:14pm 08/06/2016 9:26pm Red Blood Count 4.82 MIL/uL 3.80-5.10 08/06/2016 9:14pm 08/06/2016 9:26pm Hemoglobin 15.2 g/dL 11.7-15.5 08/06/2016 9:1408/06/2016 9:26pm Hematocrit 43.3 % 35.0-45.0 08/06/2016 9:08/06/2016 9:26pm Mean Corpuscular Volume 90 fL 80-100 08/06/2016 9:1408/06/2016 9:26pm Mean Corpuscular Hemoglobin 32 pg 27-33 08/06/2016 9:08/06/2016 9:26pm Mean Corpuscular Hemoglobin Concent 35 g/dL 32-36 08/06/2016 9:1408/06/2016 9:26pm Red Cell Distribution Width 12.4 % 11.0-15.0 08/06/2016 9:14pm 08/06/2016 9:26pm Platelet Count 282 1000/cmm 140-400 08/06/2016 9:14pm 08/06/2016 9:26pm Mean Platelet Volume 9.6 fL 8.7-11.9 08/06/2016 9:14pm 08/06/2016 9:26pm Granulocytes (%) 59.1 % 08/06/2016 9:1408/06/2016 9:26pm Lymphocytes % 29.1 % 08/06/2016 9:08/06/2016 9:26pm Monocytes % 8.9 % 08/06/2016 9:08/06/2016 9:26pm Eosinophils % 2.5 % 08/06/2016 9:08/06/2016 9:26pm Basophils % 0.4 % 08/06/2016 9:08/06/2016 9:26pm Granulocytes # 5.39 1000/uL 1.50-7.80 08/06/2016 9:14pm 08/06/2016 9:26pm Lymphocytes # 2.65 1000/uL 0.85-3.90 08/06/2016 9:pm 08/06/2016 9:26pm Monocytes # 0.81 1000/uL 0.20-0.95 08/06/2016 9:08/06/2016 9:26pm Eosinophils # 0.23 1000/uL 0.01-0.50 08/06/2016 9:08/06/2016 9:26pm Basophils # 0.04 1000/uL 0.00-0.20 08/06/2016 9:08/06/2016 9:26pm Urine Color YELLOW YELLOW 08/06/2016 9:08/06/2016 9:32pm Urine Appearance CLEAR CLEAR 08/06/2016 9:08/06/2016 9:32pm Urine Specific [place] 1.010 08/06/2016 9:08/06/2016 9:32pm Reference Range <=1.005-1.035 [...] 9:32pm Sodium Level 142 mmol/L 135-146 08/06/2016 9:1408/06/2016 9:37pm Potassium Level 4.5 mmol/L 3.5-5.0 08/06/2016 9:08/06/2016 9:37pm Hemolysis detected, results may be affected. Chloride Level 104 mmol/L 98-110 08/06/2016 9:08/06/2016 9:37pm Carbon Dioxide Level 22.9 mmol/L 19.0-30.0 08/06/2016 9:08/06/2016 9:37pm Anion Gap 15 -08/06/2016 9:1408/06/2016 9:37pm Glucose Level 107 mg/dL H 65-99 08/06/2016 9:08/06/2016 9:37pm Blood Urea Nitrogen 8 mg/dL 7-08/06/2016 9:1408/06/2016 9:37pm Creatinine 0.53 mg/dL 0.50-1.10 08/06/2016 9:08/06/2016 9:37pm Estimated GFR (Non- 132 >60 08/06/2016 9:08/06/2016 9:37pm Units: mL/min/1.73m2) Estimated GFR () 153 >60 08/06/2016 9:1408/06/2016 9:37pm Units: mL/min/1.73m2) BUN/Creatinine Ratio 15 7-08/06/2016 9:1408/06/2016 9:37pm Estimated GFR (Cockcroft-Gault) 130.35 ml/min >30 08/06/2016 9:08/06/2016 9:37pm Adjusted body weight used for calculation. Calculated Osmolality 293 mOSM/kg 280-300 08/06/2016 9:14pm 08/06/2016 9:37pm Total Protein 7.8 g/dL 6.1-8.1 08/06/2016 9:14pm 08/06/2016 9:37pm Albumin 4.5 g/dL 3.6-5.1 08/06/2016 9:14pm 08/06/2016 9:37pm Globulin 3.3 g/dL 1.9-3.7 08/06/2016 9:08/06/2016 9:37pm Calcium Level 9.5 mg/dL 8.6-10.2 08/06/2016 9:pm 08/06/2016 9:37pm Corrected Calcium 9.4 mg/dL 8.6-10.2-calc 08/06/2016 9:08/06/2016 9:37pm Total Bilirubin 0.3 mg/dL 0.2-1.2 08/06/2016 9:08/06/2016 9:37pm Lipase 36 IU/L 7-60 08/06/2016 9:08/06/2016 9:37pm Alkaline Phosphatase 56 U/L 33-115 08/06/2016 9:pm 08/06/2016 9:37pm Aspartate Amino Transf (AST/SGOT) 26 U/L 10-30 08/06/2016 9:pm 08/06/2016 9:37pm Hemolysis detected, results may be affected. Alanine Aminotransferase (ALT/SGPT) 18 U/L 6-29 08/06/2016 9:08/06/2016 9:37pm AST/ALT Ratio 1.444 0.10-40.00 08/06/2016 9:08/06/2016 9:37pm Bedside Urine HCG, Qualitative Negative NEGATIVE 08/06/2016 10:00pm 08/06/2016 10:02pm Bedside Urine Test QC acceptable ACCEPTABLE 08/06/2016 10:00pm 08/06/2016 10:02pm [id number] TESTING PERFORMED BY PERSONNEL OF: [address] [place] [address] Bedside Urine HCG, Qualitative Negative NEGATIVE 08/10/2016 7:58am 08/10/2016 8:20am Bedside Urine Test QC acceptable ACCEPTABLE 08/10/2016 7:58am 08/10/2016 8:20am [id number] TESTING PERFORMED BY PERSONNEL OF: [place] [address] [place] [address] Procedures Procedure Status Date Provider(s) EGD (esophagogastroduodenoscopy) Completed 08/10/16 Nicolas Hernandez MD Encounters Encounter Location Arrival/Admit Date Discharge/Depart Date Attending Provider Departed Surgical Day Care [facility] 08/10/16 7:36am 08/10/16 10:30am Nicolas Hernandez MD Departed Emergency Room [facility] 08/06/16 8:52pm 08/06/16 10:42pm Oliver West MD Recent Diagnosis Hematemesis
--- OUTSIDE RECORDS SUMMARY | 2018-12-22 11:07 | XMS REPORT | Continuity of Care Document ---
Author Author [facility] Organization [facility] Address [address] [place] [address] Care Team Providers Care Travel Administrator Name Role Phone Primary Care Prov, None [...] 13, 2017 Discontinued NEEDED FOR NAUSEA Hydrocodone/Acetaminophen [[place] 5-325 Tablet] 1 TAB PO every 4-6 [...] as a primary physician visit or through [facility]. Return to the emergency department immediately [...] Date Discharge/Departure Date Attending Provider Departed Emergency [facility] Emergency Room Services December 18, 2017 2:58pm December 18, 2017 5:45pm Departed Physician/Provider Office Visit [facility] November 13, 2017 11:15am November 13, 2017 12:36pm Poornima Haynes Functional Status No known functional status. Immunizations No known immunizations. Payers Payer Name Policy Type Covered Green Party Covered Green Party Id Relationship Subscriber Subscriber Id Self [...]
--- OUTSIDE RECORDS SUMMARY | 2018-12-22 11:07 | XMS REPORT ---
Author Author Azalea Keys [facility] Address [address] [place], [place] [address] Care Team Providers Care Cane Feeder Name Role Phone Azalea Keys Unavailable PROBLEMS Type Condition ICD9-CM Code NUV67-JV Code Onset Dates Condition Status SNOMED Code Problem Right ovarian cyst N83.201 Active 82752545721477633 Problem Gastroesophageal reflux disease without esophagitis K21.9 Active 896863410 Assessment Right upper quadrant pain R10.11 Sep, Active 35228520 Assessment Abdominal bloating R14.0 Sep, Active 587911326 Problem Antral gastritis K29.50 Active 9602092 Problem Colon spasm K58.9 Active 393741005 ALLERGIES Substance Reaction Event Type Date Status N.K.D.A. Unknown Non Drug Allergy Sep, Unknown SOCIAL HISTORY No smoking Hx information available PLAN OF CARE VITAL SIGNS Heart Rate 80 /min 2016-10-06 Weight 129 lbs 2016-10-06 Blood pressure systolic 106 mm Hg 2016-10-06 Blood pressure diastolic 60 mm Hg 2016-10-06 MEDICATIONS Medication Instructions Dosage Frequency Start Date End Date Duration Status Ortho Tri-Cyclen (28) 0.18/0.215/0.25 MG-35 MCG Orally Once a day 1 tablet 24h Sep, Active Prilosec 20 MG Orally twice a day 1 capsule 12h Active Amitriptyline HCl 10 MG Orally Once a day 1 tablet 24h Sep, 30 day(s) Active Bentyl 10 MG Orally qid prn 1 capsule Sep, 30 day(s) Active RESULTS No Results PROCEDURES Procedure Date Ordered Related Diagnosis Body Site Office Visit, Est Pt., Level 4 October 06, 2016 IMMUNIZATIONS No Known Immunizations
--- OUTSIDE RECORDS SUMMARY | 2018-12-22 11:07 | XMS REPORT | Continuity of Care Document ---
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 No 08/06/16 8:52pm Do You Have a DPOA? No 08/06/16 8:52pm Problems Active Problems Medical Problem Onset Date Status Peptic ulcer disease Unknown Acute Medications Current Home Medications Medication Dose Units Route Directions Days/Qty Instructions Start Date Prochlorperazine Maleate 10 Mg 10 Mg Oral Every 6 Hours As Needed as needed 30 NEEDED FOR NAUSEA 08/06/16 Omeprazole (Prilosec Otc) 20 Mg 40 Mg Oral Twice A Day 60 40MG=TWO TABLETS 08/06/16 Social History Social History Problem Response Recorded Date/Time History of Street Drugs? No 08/06/2016 8:50pm Hx Alcohol Use Y she drinks about 3 whiskeys once a week. 08/06/2016 9:43pm Query Response Start Date Stop Date Smoking status: Current everyday smoker Hospital Discharge Instructions No hospital discharge instructions. Plan of Care Discharge Date 08/06/16 10:42pm Disposition HOME, ROUTINE DIS/ASST LIVING Condition at Discharge Stable & Improved Prescriptions See Medication Section Functional Status No functional status results. Allergies, Adverse Reactions, Alerts No known allergies. Immunizations No immunization records. Vital Signs Acute Vital Signs Vital Response Date/Time Temperature (Fahrenheit) 97.9 degrees F (97.6 - 99.5) 08/06/2016 8:50pm Pulse Pulse Rate 81 bpm (60 - 100) 08/06/2016 10:42pm Respiratory Rate 16 bpm (10 - 24) 08/06/2016 10:42pm Oxygen Saturation O2 Sat by Pulse Oximetry 98 % (93 - 100) 08/06/2016 10:42pm Blood Pressure 134/81 mm Hg 08/06/2016 10:42pm Blood Pressure Mean 101 mm Hg 08/06/2016 10:42pm Height 5 ft 0 in Weight 130 lb Body Mass Index 25.4 kg/m^2 Results Laboratory Results Test Name Result Units Flags Reference Collection Date/Time Result Date/Time Comments White Blood Count 9.1 1000/cmm 3.8-10.8 08/06/2016 9:14pm 08/06/2016 9:26pm Red Blood Count 4.82 MIL/uL 3.80-5.10 08/06/2016 9:1408/06/2016 9:26pm Hemoglobin 15.2 g/dL 11.7-15.5 08/06/2016 9:1408/06/2016 9:26pm Hematocrit 43.3 % 35.0-45.0 08/06/2016 9:08/06/2016 9:26pm Mean Corpuscular Volume 90 fL 80-100 08/06/2016 9:08/06/2016 9:26pm Mean Corpuscular Hemoglobin 32 pg 27-33 08/06/2016 9:08/06/2016 9:26pm Mean Corpuscular Hemoglobin Concent 35 g/dL 32-36 08/06/2016 9:08/06/2016 9:26pm Red Cell Distribution Width 12.4 % 11.0-15.0 08/06/2016 9:1408/06/2016 9:26pm Platelet Count 282 1000/cmm 140-400 08/06/2016 9:08/06/2016 9:26pm Mean Platelet Volume 9.6 fL 8.7-11.9 08/06/2016 9:1408/06/2016 9:26pm Granulocytes (%) 59.1 % 08/06/2016 9:1408/06/2016 9:26pm Lymphocytes % 29.1 % 08/06/2016 9:08/06/2016 9:26pm Monocytes % 8.9 % 08/06/2016 9:08/06/2016 9:26pm Eosinophils % 2.5 % 08/06/2016 9:08/06/2016 9:26pm Basophils % 0.4 % 08/06/2016 9:08/06/2016 9:26pm Granulocytes # 5.39 1000/uL 1.50-7.80 08/06/2016 9:08/06/2016 9:26pm Lymphocytes # 2.65 1000/uL 0.85-3.90 08/06/2016 9:pm 08/06/2016 9:26pm Monocytes # 0.81 1000/uL 0.20-0.95 08/06/2016 9:pm 08/06/2016 9:26pm Eosinophils # 0.23 1000/uL 0.01-0.50 08/06/2016 9:08/06/2016 9:26pm Basophils # 0.04 1000/uL 0.00-0.20 08/06/2016 9:08/06/2016 9:26pm Urine Color YELLOW YELLOW 08/06/2016 9:08/06/2016 9:32pm Urine Appearance CLEAR CLEAR 08/06/2016 9:08/06/2016 9:32pm Urine Specific [place] 1.010 08/06/2016 9:08/06/2016 9:32pm Reference Range <=1.005-1.035 Urine pH 7.0 5.0-8.0 08/06/2016 9:08/06/2016 9:32pm Urine Protein NEGATIVE mg/dL NEGATIVE 08/06/2016 9:08/06/2016 9:32pm Urine Glucose NEGATIVE mg/dL NEGATIVE 08/06/2016 9:08/06/2016 9:32pm Urine Ketones NEGATIVE mg/dL NEGATIVE 08/06/2016 9:08/06/2016 9:32pm Urine Blood NEGATIVE NEGATIVE 08/06/2016 9:08/06/2016 9:32pm Urine Nitrite NEGATIVE NEGATIVE 08/06/2016 9:08/06/2016 9:32pm Urine Leukocyte Esterase NEGATIVE NEGATIVE 08/06/2016 9:1908/06/2016 9:32pm Urine Bilirubin NEGATIVE NEGATIVE 08/06/2016 9:1908/06/2016 9:32pm Urine Urobilinogen 1.0 mg/dL 0.2-1.0 08/06/2016 9:1908/06/2016 9:32pm N/A No NO 08/06/2016 9:1908/06/2016 9:32pm Sodium Level 142 mmol/L 135-146 08/06/2016 9:1408/06/2016 9:37pm Potassium Level 4.5 mmol/L 3.5-5.0 08/06/2016 9:1408/06/2016 9:37pm Hemolysis detected, results may be affected. Chloride Level 104 mmol/L 98-110 08/06/2016 9:1408/06/2016 9:37pm Carbon Dioxide Level 22.9 mmol/L 19.0-30.0 08/06/2016 9:1408/06/2016 9:37pm Anion Gap 15 7-08/06/2016 9:1408/06/2016 9:37pm Glucose Level 107 mg/dL H 65-99 08/06/2016 9:1408/06/2016 9:37pm Blood Urea Nitrogen 8 mg/dL 7-08/06/2016 9:1408/06/2016 9:37pm Creatinine 0.53 mg/dL 0.50-1.10 08/06/2016 9:1408/06/2016 9:37pm Estimated GFR (Non- 132 >60 08/06/2016 9:08/06/2016 9:37pm Units: mL/min/1.73m2) Estimated GFR () 153 >60 08/06/2016 9:1408/06/2016 9:37pm Units: mL/min/1.73m2) BUN/Creatinine Ratio 15 7-25 08/06/2016 9:1408/06/2016 9:37pm Estimated GFR (Cockcroft-Gault) 130.35 ml/min >30 08/06/2016 9:1408/06/2016 9:37pm Adjusted body weight used for calculation. Calculated Osmolality 293 mOSM/kg 280-300 08/06/2016 9:1408/06/2016 9:37pm Total Protein 7.8 g/dL 6.1-8.1 08/06/2016 9:14pm 08/06/2016 9:37pm Albumin 4.5 g/dL 3.6-5.1 08/06/2016 9:14pm 08/06/2016 9:37pm Globulin 3.3 g/dL 1.9-3.7 08/06/2016 9:14pm 08/06/2016 9:37pm Calcium Level 9.5 mg/dL 8.6-10.2 08/06/2016 9:14pm 08/06/2016 9:37pm Corrected Calcium 9.4 mg/dL 8.6-10.2-calc 08/06/2016 9:14pm 08/06/2016 9:37pm Total Bilirubin 0.3 mg/dL 0.2-1.2 08/06/2016 9:14pm 08/06/2016 9:37pm Lipase 36 IU/L 7-60 08/06/2016 9:14pm 08/06/2016 9:37pm Alkaline Phosphatase 56 U/L 33-115 08/06/2016 9:14pm 08/06/2016 9:37pm Aspartate Amino Transf (AST/SGOT) 26 U/L 10-30 08/06/2016 9:14pm 08/06/2016 9:37pm Hemolysis detected, results may be affected. Alanine Aminotransferase (ALT/SGPT) 18 U/L 6-29 08/06/2016 9:14pm 08/06/2016 9:37pm AST/ALT Ratio 1.444 0.10-40.00 08/06/2016 9:14pm 08/06/2016 9:37pm Bedside Urine HCG, Qualitative Negative NEGATIVE 08/06/2016 10:00pm 08/06/2016 10:02pm Bedside Urine Test QC acceptable ACCEPTABLE 08/06/2016 10:00pm 08/06/2016 10:02pm [id number] TESTING PERFORMED BY PERSONNEL OF: [address] [place] [address] Procedures No known history of procedures. Encounters Encounter Location Arrival/Admit Date Discharge/Depart Date Attending Provider Departed Emergency Room [facility] 08/06/16 8:52pm 08/06/16 10:42pm Oilver West MD Recent Diagnosis Peptic ulcer disease
--- OUTSIDE RECORDS SUMMARY | 2018-12-22 11:08 | XMS REPORT | Continuity of Care Document ---
Author Organization Unknown Address Unknown Allergies Active Description Code Type Severity Reaction Onset Reported/Identified Relationship to Patient Clinical Status Yes No Known Allergies No Known Allergies Miscellaneous Allergy Unknown N/A 08/06/2016 Yes No Known Drug Allergies [id number] Drug Allergy Unknown N/A 11/13/2017 Medications Medication Packaging Start Date Stop Date Route Dosage Sig Omeprazole 20 MG 08/06/2016 40 MG BID OMEPRAZOLE MAGNESIUM 20 MG 08/06/2016 11/14/2017 PO 40 MG F PROCHLORPERAZINE MALEATE 10 MG 08/06/2016 11/14/2017 PO 10 MG F IBUPROFEN 800 MG 11/18/2016 11/14/2017 PO 800 MG F HYDROCODONE/ACETAMINOPHEN 1 TAB 11/18/2016 11/14/2017 PO 1 TAB F ONDANSETRON 4 mg 11/13/2017 PO 4 MG F METOCLOPRAMIDE HCL 10 MG 12/18/2017 PO 10 MG F HYDROXYZINE HCL 50 MG 12/18/2017 PO 50 MG F Problems Date Dx Coded Attending Type Code Diagnosis Diagnosed By 08/06/2016 Oliver West MD K27.7 CHRONIC PEPTIC ULCER, SITE UNSP, W/O HEMORRHAGE OR PERF 08/06/2016 Oliver West MD R11.2 NAUSEA WITH VOMITING, UNSPECIFIED 12/18/2017 Tera Lebron MD F41.9 Anxiety disorder, unspecified 12/18/2017 Tera Lebron MD R06.02 Shortness of breath 12/18/2017 Tera Lebron MD R11.0 Nausea 12/18/2017 Tera Lebron MD F41.9 F41.9 - Anxiety disorder, unspecified Procedures Code Description [place] [id number] 12/18/2017 89381 12/18/2017 36946 12/18/2017 70531 12/18/2017 36103 12/18/2017 72786 12/18/2017 82154 12/18/2017 38256 12/18/2017 J2060 12/18/2017 J7120 12/18/2017 Results Test Result Range Complete Blood Count - 08/06/16 21:14 White Blood Count 9.1 1000/cmm 3.8-10.8 Red Blood Cell Count 4.82 MIL/uL 3.80-5.10 Hemoglobin 15.2 g/dL 11.7-15.5 Hematocrit 43.3 % 35.0-45.0 Mean Corpuscular Volume 90 fL 80-100 Mean Corpuscular Hemoglobin 32 pg 27-33 Mean Corpuscular HGB Conc 35 g/dL 32-36 Red Cell Distribution Width 12.4 % 11.0-15.0 Platelet Count 282 1000/cmm 140-400 Mean Platelet Volume 9.6 fL 8.7-11.9 Granulocytes % 59.1 % Lymphocytes % 29.1 % Monocytes % 8.9 % Eosinophils % 2.5 % Basophils % 0.4 % Granulocytes # 5.39 1000/uL 1.50-7.80 Lymphocytes # 2.65 1000/uL 0.85-3.90 Monocytes # 0.81 1000/uL 0.20-0.95 Eosinophils # 0.23 1000/uL 0.01-0.50 Basophils # 0.04 1000/uL 0.00-0.20 Comp Metabolic Profile - 08/06/16 21:14 Sodium Level 142 mmol/L 135-146 Potassium Level 4.5 mmol/L 3.5-5.0 Chloride Level 104 mmol/L 98-110 Carbon Dioxide Level 22.9 mmol/L 19.0-30.0 Anion Gap 15 7-17 Glucose 107 mg/dL 65-99 Blood Urea Nitrogen 8 mg/dL 7-25 Creatinine 0.53 mg/dL 0.50-1.10 eGFR Non-Black 153 >60 BUN/Creatinine Ratio 15 7-25 Calculated Creatine Clearance 130.35 ml/min >30 Osmolality, Calculated 293 mOSM/kg 280-300 Protein Total 7.8 g/dL 6.1-8.1 Albumin 4.5 g/dL 3.6-5.1 Globulin 3.3 g/dL 1.9-3.7 Calcium Level 9.5 mg/dL 8.6-10.2 Corrected Calcium 9.4 mg/dL 8.6-10.2-calc Bilirubin, Total 0.3 mg/dL 0.2-1.2 Alkaline Phosphatase 56 U/L 33-115 AST/SGOT 26 U/L 10-30 ALT/SGPT 18 U/L 6-29 AST/ALT Ratio 1.444 0.10-40.00 Lipase - 08/06/16 21:14 Lipase 36 IU/L 7-60 Urinalysis- C S if indicated - 08/06/16 21:19 Color, Urine YELLOW YELLOW Appearance, Urine CLEAR CLEAR Specific [place], Urine 1.010 PH, Urine 7.0 5.0-8.0 Protein, Urine NEGATIVE mg/dL NEGATIVE Glucose, Urine (UA) NEGATIVE mg/dL NEGATIVE Ketones, Urine NEGATIVE mg/dL NEGATIVE Blood, Urine NEGATIVE NEGATIVE Nitrite, Urine NEGATIVE NEGATIVE Leukocyte Esterase, Urine NEGATIVE NEGATIVE Bilirubin, Urine NEGATIVE NEGATIVE Urobilinogen 1.0 mg/dL 0.2-1.0 Color Interference, Urine No NO Urinalysis Dipstick - 11/18/16 01:21 Color, Urine YELLOW YELLOW Appearance, Urine CLEAR CLEAR Specific [place], Urine 1.010 PH, Urine 5.5 5.0-8.0 Protein, Urine NEGATIVE mg/dL NEGATIVE Glucose, Urine (UA) NEGATIVE mg/dL NEGATIVE Ketones, Urine NEGATIVE mg/dL NEGATIVE Blood, Urine NEGATIVE NEGATIVE Nitrite, Urine NEGATIVE NEGATIVE Leukocyte Esterase, Urine NEGATIVE NEGATIVE Bilirubin, Urine NEGATIVE NEGATIVE Urobilinogen 0.2 mg/dL 0.2-1.0 Color Interference, Urine No NO [place] (inc JOSEPH,Clue,Trich) - 11/18/16 01:21 Yeast, [place] NEGATIVE NEGATIVE Clue Cells, [place] NEGATIVE NEGATIVE Trichomonas [place] NEGATIVE NEGATIVE C.trachomatis/N.gonorrhoeae - 11/18/16 01:21 Chlamydia Trachomastis RNA,TMA NOT DETECTED NOT DETECTED Neisseria Gonorrhoeae RNA, TMA NOT DETECTED NOT DETECTED See Note: SEE NOTE Complete Blood Count - 12/18/17 16:24 White Blood Count 7.2 1000/cmm 3.8-10.8 Red Blood Cell Count 5.14 MIL/uL 3.80-5.10 Hemoglobin 17.3 g/dL 11.7-15.5 Hematocrit 47.4 % 35.0-45.0 Mean Corpuscular Volume 92 fL 80-100 Mean Corpuscular Hemoglobin 34 pg 27-33 Mean Corpuscular HGB Conc 37 g/dL 32-36 Red Cell Distribution Width 12.0 % 11.0-15.0 Platelet Count 201 1000/cmm 140-400 Mean Platelet Volume 10.0 fL 7.5-12.5 Granulocytes % (Auto) 67.2 % NRG Lymphocytes % (Auto) 16.8 % NRG Monocytes % (Auto) 15.1 % NRG Eosinophils % (Auto) 0.6 % NRG Basophils % (Auto) 0.3 % NRG Granulocytes # (Auto) 4.82 1000/uL 1.50-7.80 Lymphocytes # (Auto) 1.20 1000/uL 0.85-3.90 Monocytes # (Auto) 1.08 1000/uL 0.20-0.95 Eosinophils # (Auto) 0.04 1000/uL 0.01-0.50 Basophils # (Auto) 0.02 1000/uL 0.00-0.20 Comp Metabolic Profile - 12/18/17 16:24 Sodium Level 133 mmol/L 135-146 Potassium Level 3.1 mmol/L 3.5-5.3 Chloride Level 91 mmol/L 98-110 Carbon Dioxide Level 22.8 mmol/L 20-31 Anion Gap 19 7-17 Glucose 101 mg/dL 65-99 Blood Urea Nitrogen 7 mg/dL 7-25 Creatinine 0.58 mg/dL 0.50-1.10 eGFR Non-Black 127 >60 eGFR Black 147 >60 Calculated Creatine Clearance 119.00 ml/min >30 Osmolality, Calculated 274 mOSM/kg 280-300 BUN/Creatinine Ratio 12 7-25 Calcium Level 10.5 mg/dL 8.6-10.2 Protein Total 8.2 g/dL 6.1-8.1 Albumin 5.0 g/dL 3.6-5.1 Globulin 3.2 g/dL 1.9-3.7 Corrected Calcium 10.1 mg/dL 8.6-10.2-calc Bilirubin, Total 1.7 mg/dL 0.2-1.2 Alkaline Phosphatase 70 U/L 33-115 AST/SGOT 41 U/L 10-30 ALT/SGPT 28 U/L 6-29 AST/ALT Ratio 1.464 0.10-40.00 Thyroid Screen(Free T4 TSH) - 12/18/17 16:24 Free T4 (Free Thyroxine) 2.12 ng/dL 0.80-1.80 Thyroid Stim Hormone-Ultra 0.84 uIU/mL 0.40-4.50 Encounters ACCT No. Visit Date/Time Discharge Status Pt. Type Provider Facility Loc./Unit Complaint [id number] 11/02/2018 15:20:00 11/02/2018 23:59:59 CLS Outpatient [facility] [id number] 12/18/2017 14:58:00 12/18/2017 17:45:00 DIS Emergency Bernardino SIMS, [facility] ER SOB, rapid heart, blackout [id number] 11/13/2017 11:15:00 11/13/2017 12:36:00 DIS Outpatient Dallas JONES, [facility] HMG.CON stomach upset [id number] 11/18/2016 00:39:00 11/18/2016 03:14:00 DIS Emergency Bruno SIMS, [facility] ER "CYST ON RIGHT HIP" [id number] 08/19/2016 15:20:00 08/19/2016 23:59:59 CLS Outpatient Mary SIMS, [facility] HMG.SWS [id number] 08/10/2016 07:36:00 08/10/2016 10:30:00 DIS Outpatient Mary SIMS, [facility] OR EGD [id number] 08/06/2016 20:52:00 08/06/2016 22:42:00 DIS Emergency Brett SIMS, [facility] ER "STOMACH PAIN" [id number] 12/27/2017 10:35:00 Document Registration [id number] 12/23/2017 08:15:00 Document Registration
--- NOTE | 2018-12-22 11:35 | NUR ---
Pt reported to registration she is leaving
== END 2018-12-22 11:36 | disposition left against medical advice (07) ==
LOC: EDUNIT# 11:01 → ER 11:03
DX: R11.10 Vomiting, unspecified (principal); R10.9 Unspecified abdominal pain

== ENCOUNTER 2019-03-26 13:44 | Emergency (ER) | payer SELFPAY ==
[~2019-03-26] VITALS: Ht 152 cm; Wt 44.0 kg
[2019-03-26 14:44] LABS: CLARITY,URINE CLEAR; COLOR,URINE YELLOW; GLUCOSE, URINE (UA) NEGATIVE (NEGATIVE); KETONES,URINE 1+ (NEGATIVE); LEUKOCYTE ESTERASE ,URINE 2+ (NEGATIVE); NITRITE,URINE NEGATIVE (NEGATIVE); PH,URINE 7 (5-9); PROTEIN,URINE 2+ (NEGATIVE); UROBILINOGEN,URINE 8 MG/DL (NORMAL)
[2019-03-26] MEDS ORDERED: NS IV 1000 ML 1,000 ML IV SCH ×2 (14:46→16:20)
[2019-03-26 14:54] LABS: BASOPHILS % (AUTO) 0 % (0-10); EOSINOPHILS # (AUTO) 0.1 10^3/uL (0.0-0.3); EOSINOPHILS % (AUTO) 1 % (0-10); HEMATOCRIT 51 % (35-52); LYMPHOCYTES # (AUTO) 2.6 X 10^3 (1.0-4.0); LYMPHOCYTES % (AUTO) 26 % (12-44); MEAN CORPUSCULAR HEMOGLOBIN 31 PG (25-34); MEAN CORPUSCULAR HGB CONC 35 G/DL (32-36); MEAN CORPUSCULAR VOLUME 89 FL (80-99); MEAN PLATELET VOLUME 9.8 FL (7.4-10.4); MONOCYTES # (AUTO) 1.3 X 10^3 (0.0-1.0); MONOCYTES % (AUTO) 13 % (0-12); NEUTROPHILS # (AUTO) 6.1 X 10^3 (1.8-7.8); NEUTROPHILS % (AUTO) 60 % (42-75); PLATELET COUNT 310 10^3/uL (130-400); RED CELL DISTRIBUTION WIDTH 12.8 % (10.0-14.5)
[2019-03-26 15:05] LABS: ALANINE AMINOTRANSFERASE 20 U/L (0-55); ALBUMIN 5.2 GM/DL (3.2-4.5); ALKALINE PHOSPHATASE 62 U/L (40-136); BILIRUBIN,TOTAL 0.6 MG/DL (0.1-1.0); BUN/CREATININE RATIO 11; CALCIUM 11.2 MG/DL (8.5-10.1); CARBON DIOXIDE 29 MMOL/L (21-32); CHLORIDE 95 MMOL/L (98-107); CREATININE SERUM 0.83 MG/DL (0.60-1.30); GFR ESTIMATED > 60; GLUCOSE 97 MG/DL (70-105); POTASSIUM 3.5 MMOL/L (3.6-5.0); SODIUM 141 MMOL/L (135-145); TOTAL PROTEIN 9.2 GM/DL (6.4-8.2)
[2019-03-26 15:06] LABS: BACTERIA,URINE FEW /HPF; SQUAMOUS EPITHELIAL CELL,UR TNTC /HPF
[2019-03-26 15:07] LABS: BILIRUBIN,URINE 1+ (NEGATIVE)
[2019-03-26 15:24] LABS: TSH (THYROID ANALYZER) 0.61 UIU/ML (0.35-4.94)
--- NOTE | 2019-03-26 15:24 | ED Abdominal Pain ---
General Chief Complaint: Abdominal/GI Problems Stated Complaint: ABD PAIN Nursing Triage Note: STATES SHE HAS STOMACH ULCERS AND HAS NOT BEEN ABLE TO KEEP ANYTHING DOWN X1 WEEK. ALSO STATES SHE HAS LOST 10LBS THIS PAST WEEK. Sepsis Screen: No Definite Risk History of Present Illness Date Seen by Provider: Mar 26, 2019 Time Seen by Provider: 14:45 Initial Comments 28-year-old female reports for generalized abdominal pain. She was told approximately 18 months ago that she had a GI ulcer by a physician in [facility]. She was told to discontinue pop and started on an antide pressant. She reports the pain in her abdomen has worsened over the last week and she hasn't been able to tolerate solid or liquid foods. She has been vomiting several times daily. She has a superficial laceration to her second finger DIP on left hand from opening a can last night. NO Erythema or warmth. Current on Tetanus. Timing/Duration: 1 Week Severity/Quality: Moderate Location: Generalized Abdomen Radiation: No Radiation Activities at Onset: None Associated Symptoms: Heartburn, Nausea/Vomiting Allergies and Home Medications Allergies Coded Allergies: No Known Drug Allergies (Unverified , 02/02/09) Home Medications Ondansetron 4 Mg Tab.rapdis, 4 MG PO Q6H PRN for NAUSEA/VOMITING Prescribed by: TAM YAÑEZ on 03/26/19 1603 Pantoprazole Sodium 20 Mg Tablet.dr, 20 MG PO DAILY Prescribed by: TAM YAÑEZ on 03/26/19 1603 Patient Home Medication List Home Medication List Reviewed: Yes Review of Systems Review of Systems Constitutional: no symptoms reported, see HPI Gastrointestinal: See HPI, Abdominal Pain, Nausea, Poor Appetite, Poor Fluid Intake, Vomiting All Other Systems Reviewed Negative Unless Noted: Yes Past Qnlkzhe-Enuxcs-Sojoge Hx Past Med/Social Hx: Reviewed Nursing Past Med/Soc Hx Patient Social History Alcohol Use: Occasionally Uses Recreational Drug Use: Yes Drug of Choice: POT on the weekends. Smoking Status: Current Everyday Smoker Type Used: Cigarettes 2nd Hand Smoke Exposure: No Recent Foreign Travel: No Contact w/Someone Who Travel: No Recent Infectious Disease Expo: No Past Medical History Surgeries: No Respiratory: No Cardiac: No Neurological: No : No Last Menstrual Period: Feb 23, 2019 Reproductive Disorders: No Genitourinary: No Gastrointestinal: Yes Ulcer Musculoskeletal: No Endocrine: No HEENT: No Cancer: No Psychosocial: No Integumentary: No Family Medical History No Pertinent Family Hx Physical Exam Vital Signs Vital Signs - First Documented 03/26/19 13:54 Temp 36.8 Pulse 86 Resp 16 B/P (MAP) 146/84 (104) Pulse Ox 99 O2 Delivery Room Air Capillary Refill : Less Than 3 Seconds Height/Weight/BMI Height: 5'0.00" Weight: 115lbs. 0.0oz. 52.208972sm; 19.00 BMI Method:Stated General Appearance: WD/WN, no apparent distress HEENT: PERRL/EOMI, normal ENT inspection, TMs normal, pharynx normal, other (oromucosa pink and moist) Neck: non-tender, full range of motion, supple, normal inspection Respiratory: chest non-tender, lungs clear, normal breath sounds Cardiovascular: normal peripheral pulses, regular rate, rhythm Gastrointestinal: normal bowel sounds, soft; No rebound; tenderness (generalized); No hernia, No mass Back: normal inspection, no CVA tenderness, no vertebral tenderness Neurologic/Psychiatric: no motor/sensory deficits, alert, normal mood/affect Skin: normal color, warm/dry Lymphatic: no adenopathy Progress/Results/Core Measures Results/Orders Lab Results Laboratory Tests Test 03/26/19 14:20 03/26/19 14:41 Range/Units Urine Color YELLOW Urine Clarity CLEAR Urine pH 7 5-[address] 1.010 L 1.016-1.022 Urine Protein 2+ H NEGATIVE Urine Glucose (UA) NEGATIVE NEGATIVE Urine Ketones 1+ H NEGATIVE Urine Nitrite NEGATIVE NEGATIVE Urine Bilirubin 1+ H NEGATIVE Urine Urobilinogen 8 H NORMAL MG/DL Urine Leukocyte Esterase 2+ H NEGATIVE Urine RBC (Auto) NEGATIVE NEGATIVE Urine RBC NONE /HPF Urine WBC NONE /HPF Urine Squamous Epithelial Cells TNTC H /HPF Urine Crystals NONE /LPF Urine Bacteria FEW H /HPF Urine Casts NONE /LPF Urine Mucus SMALL H /LPF Urine Culture Indicated NO Urine Test NEGATIVE NEGATIVE Urine Opiates Screen NEGATIVE NEGATIVE Urine Oxycodone Screen NEGATIVE NEGATIVE Urine Methadone Screen NEGATIVE NEGATIVE Urine Propoxyphene Screen NEGATIVE NEGATIVE Urine Barbiturates Screen NEGATIVE NEGATIVE Ur Tricyclic Antidepressants Screen NEGATIVE NEGATIVE Urine Phencyclidine Screen NEGATIVE NEGATIVE Urine Amphetamines Screen NEGATIVE NEGATIVE Urine Methamphetamines Screen NEGATIVE NEGATIVE Urine Benzodiazepines Screen NEGATIVE NEGATIVE Urine Cocaine Screen NEGATIVE NEGATIVE Urine Cannabinoids Screen POSITIVE H NEGATIVE White Blood Count 10.0 4.3-11.0 10^3/uL Red Blood Count 5.74 4.35-5.85 10^6/uL Hemoglobin 18.0 H 11.5-16.0 G/DL Hematocrit 51 35-52 % Mean Corpuscular Volume 89 80-99 FL Mean Corpuscular Hemoglobin 31 25-34 PG Mean Corpuscular Hemoglobin Concent 35 32-36 G/DL Red Cell Distribution Width 12.8 10.0-14.5 % Platelet Count 310 130-400 10^3/uL Mean Platelet Volume 9.8 7.4-10.4 FL Neutrophils (%) (Auto) 60 42-75 % Lymphocytes (%) (Auto) 26 12-44 % Monocytes (%) (Auto) 13 H 0-12 % Eosinophils (%) (Auto) 1 0-10 % Basophils (%) (Auto) 0 0-10 % Neutrophils # (Auto) 6.1 1.8-7.8 X 10^3 Lymphocytes # (Auto) 2.6 1.0-4.0 X 10^3 Monocytes # (Auto) 1.3 H 0.0-1.0 X 10^3 Eosinophils # (Auto) 0.1 0.0-0.3 10^3/uL Basophils # (Auto) 0.0 0.0-0.1 10^3/uL Sodium Level 141 135-145 MMOL/L Potassium Level 3.5 L 3.6-5.0 MMOL/L Chloride Level 95 L 98-107 MMOL/L Carbon Dioxide Level 29 21-32 MMOL/L Anion Gap 17 H 5-14 MMOL/L Blood Urea Nitrogen 9 7-18 MG/DL Creatinine 0.83 0.60-1.30 MG/DL Estimat Glomerular Filtration Rate > 60 BUN/Creatinine Ratio 11 Glucose Level 97 70-105 MG/DL Calcium Level 11.2 H 8.5-10.1 MG/DL Corrected Calcium 8.5-10.1 MG/DL Total Bilirubin 0.6 0.1-1.0 MG/DL Aspartate Amino Transf (AST/SGOT) 20 5-34 U/L Alanine Aminotransferase (ALT/SGPT) 20 0-55 U/L Alkaline Phosphatase 62 40-136 U/L Total Protein 9.2 H 6.4-8.2 GM/DL Albumin 5.2 H 3.2-4.5 GM/DL TSH Evans Testing 0.61 0.35-4.94 UIU/ML My Orders Orders - TAM YAÑEZ Ua Culture If Indicated (03/26/19 13:48) Cbc With Automated Diff (03/26/19 14:46) Comprehensive Metabolic Panel (03/26/19 14:46) Hcg,Qualitative Urine (03/26/19 14:46) Thyroid Analyzer (03/26/19 14:46) Ed Iv/Invasive Line Start (03/26/19 14:46) Ns Iv 1000 Ml (Sodium Chloride 0.9%) (03/26/19 14:46) Ondansetron Injection (Zofran Injectio (03/26/19 15:30) Pantoprazole Injection (Protonix Injecti (03/26/19 15:30) Drug Screen Stat (Urine) (03/26/19 15:27) Famotidine Injection (Pepcid Injection) (03/26/19 16:30) Ed Iv/Invasive Line Start (03/26/19 16:20) Ns Iv 1000 Ml (Sodium Chloride 0.9%) (03/26/19 16:20) Medications Given in ED Current Medications Medications Dose Ordered Sig/Marly Route Start Time Stop Time Status Last Admin Dose Admin Famotidine 20 mg ONCE ONCE IVP 03/26/19 16:30 03/26/19 16:31 DC 03/26/19 16:45 20 MG Ondansetron HCl 4 mg ONCE ONCE IVP 03/26/19 15:30 03/26/19 15:31 DC 03/26/19 15:34 4 MG Pantoprazole 40 mg ONCE ONCE IV 03/26/19 15:30 03/26/19 15:31 DC 03/26/19 15:35 40 MG Vital Signs/I&O 03/26/19 13:54 Temp 36.8 Pulse 86 Resp 16 B/P (MAP) 146/84 (104) Pulse Ox 99 O2 Delivery Room Air Blood Pressure Mean: 104 Progress Progress Note : Time: 14:45 Progress Note Patient seen and evaluated, will obtain labs and give normal saline 1 L per IV. 4 mg per IV for nausea. 1515 Protonix 40 mg IV 1600 patient reports some improvement in her symptoms, not wanting to try ice chips yet. Will give normal saline 1 L per IV and Pepcid 20 mg IV. 1700 patient reports nausea has improved. She is taking ice chips with no nausea or vomiting. Discharge to home when IV fluids are completed. Discharge instructions and return precautions reviewed with her. Departure Impression Primary Impression: Abdominal pain Qualified Codes: R10.84 - Generalized abdominal pain Additional Impressions: Nausea and vomiting Qualified Codes: R11.14 - Bilious vomiting GERD (gastroesophageal reflux disease) Qualified Codes: K21.9 - Gastro-esophageal reflux disease without esophagitis Disposition: HOME, SELF-CARE Condition: Improved Departure-Patient Inst. Decision time for Depature: 16:45 Referrals: NO,LOCAL PHYSICIAN (PCP/Family) Primary Care Physician Patient Instructions: Acute Abdomen (Belly Pain), Adult (DC), Acid Reflux (Gastroesophageal Reflux Disease), Adult (DC) Add. Discharge Instructions: Clear liquid diet for the next 4 date hours then bland diet as tolerated. Take the Protonix one tablet daily. Take [id number] Pepcid 20 mg one tablet twice daily. Use the Zofran every 6-8 hours as needed for nausea and vomiting. Establish care with a primary care provider or [facility]. If symptoms are not improving or worsen, schedule follow-up EGD with general surgery (Andi Snyder or Jade). Stop using marijuana as that is been linked to abdominal pain and cyclical vomiting. Return to the emergency department if symptoms worsen, fever greater than 101, or new concerns. All discharge instructions reviewed with patient and/or family. Voiced understanding. Scripts Ondansetron (Ondansetron Odt) 4 Mg Tab.rapdis 4 MG PO Q6H PRN for NAUSEA/VOMITING, #8 TAB 0 Refills Prov: TAM YAÑEZ 03/26/19 Pantoprazole Sodium (Protonix) 20 Mg Tablet. 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
[2019-03-26 15:30] LABS: AMPHETAMINE SCREEN, URINE NEGATIVE (NEGATIVE); BARBITURATE SCREEN URINE NEGATIVE (NEGATIVE); BENZODIAZEPINES SCREEN URINE NEGATIVE (NEGATIVE); CANNABINOID SCREEN, URINE POSITIVE (NEGATIVE); COCAINE SCREEN URINE NEGATIVE (NEGATIVE); METHADONE STAT NEGATIVE (NEGATIVE); METHAMPHETAMINE SCREEN URINE S NEGATIVE (NEGATIVE); OPIATE SCREEN URINE NEGATIVE (NEGATIVE); OXYCODONE STAT NEGATIVE (NEGATIVE); PROPOXYPHENE STAT NEGATIVE (NEGATIVE); TRICYCLIC ANTIDEPRESSANTS SCRE NEGATIVE (NEGATIVE)
[2019-03-26] MEDS ORDERED: ONDANSETRON 4 MG/2 ML (SDV) Z0FRAN IVP ONE (15:30)
[2019-03-26] MEDS ORDERED: PANTOPRAZOLE 40 MG (PROTONIX) VIAL IV ONE (15:30)
[2019-03-26] MEDS ORDERED: ONDA4TAB11 PO (16:03)
[2019-03-26] MEDS ORDERED: PANT20TA2 PO (16:03)
[2019-03-26] MEDS ORDERED: FAMOTIDINE 20MG/2ML IV (PEPCID) IVP ONE (16:30)
--- NOTE | 2019-03-26 17:12 | NUR ---
FLUIDS CON'T INFUSE WILL DISCHARGE WHEN DONE.
[2019-03-26 17:44] VITALS: BP 128/89
== END 2019-03-26 17:44 | disposition home or self-care (01) ==
LOC: EDUNIT# 13:44 → ER 13:45
DX: K21.9 Gastro-esophageal reflux disease without esophagitis (principal); F17.210 Nicotine dependence, cigarettes, uncomplicated; Z87.19 Personal history of other diseases of the digestive system
CPT/HCPCS: 36415; 80053; 80306; 81000; 84443; 84703; 85025